=== PATIENT | male | born 2000 | race Caucasian/White ===

== ENCOUNTER 2022-01-28 10:50 | Emergency (ER) | payer BC, SELFPAY ==
[2022-01-28] VITALS (16 sets, daily range): BP systolic 112–131; BP diastolic 63–89; PULSE 40–54; RESP 13–21; TEMP 36.7; O2SAT 100
--- NOTE | ~2022-01-28 | XR_ITS ---
EXAMINATION: XR chest 2V 01/28/2022 11:36 INDICATION: Bradycardia. Dizziness. PROCEDURE: 2 view chest COMPARISON: No prior studies for comparison. FINDINGS: The lungs are clear. The cardiomediastinal silhouette is within normal limits. There are no pleural effusions. There is no pneumothorax suspected. IMPRESSION: 1: NO ACUTE CARDIOPULMONARY DISEASE. Reviewed, dictated and finalized at location A. ER MACHINE OPERATOR
--- NOTE | 2022-01-28 11:00 | ECG_ITS ---
Measurements Intervals [place] Rate: 44 P: -22 AL: 144 QRS: 81 QRSD: 112 T: 67 QT: 440 QTc: 378 Interpretive Statements SINUS BRADYCARDIA WITH SINUS ARRHYTHMIA INTRAVENTRICULAR CONDUCTION DELAY NO PREVIOUS ECG AVAILABLE FOR COMPARISON Electronically Signed On 01-28-2022 12:29:18 AIRPORT OPERATIONS OFFICER by Yousuf Rendon M.D.
--- NOTE | 2022-01-28 11:00 | ED.SYNCOPE ---
HPI - Syncope General Chief Complaint: Syncope Stated Complaint: syncope, low HR Time Seen by Provider: 01/28/22 10:59 Source: patient Mode of arrival: EMS Limitations: no limitations History of Present Illness HPI narrative: Patient is a previously healthy 21-year-old male presenting for evaluation following a syncopal event. Patient reportedly was getting ready to eat a burrito, when he began to feel lightheaded. Patient states he tried to drink some water due to the lightheadedness, and that he lost consciousness. This was witnessed by a friend who was sitting next to him, who states that the patient was unresponsive for 10 seconds, and when he was able to lay the patient on the floor, he regained consciousness. No urinary incontinence. No muscle jerking witnessed. No tongue laceration. Patient awakened, he was not confused. Patient states that he has a history of one-time seizure approximately a year ago for which he was evaluated, not placed on any medication. He has no history of low heart rate. He denies any history of endurance training, significant physical activity. Denies any heart history. Denies recent illness or history of recent Covid infection. He denies fever, chills, nausea or vomiting. He denies any drug use. He denies any lightheadedness currently, dizziness, headache, vision changes, shortness of breath. Per EMS report, when they arrived the patient's blood pressure was low, 70/40, he was noted to be bradycardic in the 40s at times rate in the 30s. Patient's other vital signs were stable, he was transported in stable condition, he did receive a small amount of IV fluids in route. Related Data Allergies Allergy/AdvReac Type Severity Reaction Status Date / Time No Known Allergies Allergy Verified 01/28/22 11:33 Review of Systems Review of Systems: CONSTITUTIONAL: Denies fever, chills, or sweats. EYES: Denies visual changes, redness, or discharge. ENT: Denies rhinorrhea, congestion, sore throat, or otalgia. CARDIOVASCULAR: Denies chest pain, palpitations, or edema. RESPIRATORY: Denies cough or dyspnea. GASTROINTESTINAL: Denies abdominal pain, nausea, vomiting, or diarrhea. GENITOURINARY: Denies dysuria or hematuria. SKIN: Denies rash or itching. MUSCULOSKELETAL: Denies back pain, joint pain, or myalgia. NEUROLOGIC: Denies headache, numbness, or weakness. Denies current lightheadedness or dizziness. [facility] Social History Social History (Updated 01/28/22 @ 11:23 by Lily Bass MD) Smoking status: Current every day smoker Tobacco type: e-cigarettes/vaping Alcohol intake: never Substance use: current Substance use type: marijuana Gender identity (if verbalized by the patient): Male Exam Narrative: GENERAL: Awake, alert, conversant HEAD: Normocephalic, atraumatic. EYES: PERRLA and EOMI. ENT: Nares clear, no rhinorrhea or epistaxis. Mucous membranes moist. NECK: Supple. CHEST: No respiratory distress, breathing even and non labored HEART: Bradycardic rate ABDOMEN:Non distended, non tender EXTREMITIES: Normal range of motion. No edema. SKIN: Pale, warm, dry, no rash. NEURO:No focal deficits. Alert and oriented x3 Course Vital Signs Vital signs: Vital Signs Temperature 36.7 C 01/28/22 10:55 Pulse Rate 40 L 01/28/22 10:55 Respiratory Rate 14 01/28/22 10:55 Blood Pressure 112/63 01/28/22 10:55 Pulse Oximetry 100 01/28/22 10:55 Temperature 36.7 C 01/28/22 10:55 Pulse Rate 42 L 01/28/22 12:05 Respiratory Rate 18 01/28/22 12:05 Blood Pressure 121/78 01/28/22 11:46 Pulse Oximetry 100 01/28/22 11:37 MDM - Syncope MDM Narrative Medical decision making narrative: Patient presented to our facility via EMS for evaluation of syncopal episode, collapse, found to be significantly hypotensive and bradycardic. At the time of assessment, bradycardia persists. Patient is otherwise stable appearing. At time his heart rate is in the 30s, consistently 39
[2022-01-28] MEDS: SODIUM CHLORIDE 0.9% IV 1,000 ML 999 ML IV CONT (11:50)
[2022-01-28 11:54] LABS: Basophils Percent Auto 0.4 % (0.2-1.2); Eosinophils Percent Auto 0.4 % (0-4.4); Hematocrit 35.1 % (42.0-52.0); Hemoglobin 11.6 g/dL (14.0-18.0); Immature Granulocyte Absolute 0.03 K/mm3 (0.00-0.031); Immature Granulocyte Percent A 0.5 % (0-0.5); Lymphocytes Absolute Auto 1.52 K/mm3 (0.9-3.2); Lymphocytes Percent Auto 27.3 % (18.3-44.2); Mean Corpuscular Hemoglobin 29.1 pg (26-34); Monocytes Absolute Auto 0.6 K/mm3 (0.1-0.6); Monocytes Percent Auto 10.1 % (2.6-8.5); Neutrophils Absolute Auto 3.4 K/mm3 (1.3-6.7); Neutrophils Percent Auto 61.3 % (45.5-73.1); Platelet Count Result 247 k/mm3 (150-375); Red Blood Count 3.99 M/mm3 (4.6-6.20); Red Cell Distribution Width 12.6 % (11.5-14.5); White Blood Count 5.6 K/mm3 (4.5-10.0)
[2022-01-28 12:03] LABS: Alanine Aminotransferase 16 U/L (4-50); Albumin Level 4.1 g/dL (3.5-5.1); Alkaline Phosphatase 71 U/L (38-126); Anion Gap 9 mmol/L (8-16); Aspartate Amino Transferase 22 U/L (17-59); Bilirubin,Total 0.4 mg/dL (0.2-1.3); Blood Urea Nitrogen 17 mg/dL (9-20); Calcium 8.6 mg/dL (8.4-10.2); Carbon Dioxide 24 mmol/L (22-30); Chloride 107 mmol/L (98-107); Estimated Glomerular Filt Rate > 60; Glucose 106 mg/dL (65-110); Potassium 4.7 mmol/L (3.4-5.0); Sodium 140 mmol/L (137-145)
[2022-01-28 12:06] LABS: D Dimer 0.28 ug/mL (<0.48)
[2022-01-28 12:15] LABS: NT Pro B Type Natriuretic Pept 91 pg/mL (5-100); Troponin I < 0.012 ng/mL (0.000-0.034)
[2022-01-28 12:42] LABS: Thyroid Stimulating Hormone 0.758 uIU/mL (0.465-4.680)
[2022-01-28 13:55] LABS: Add Urine Microscopic? YES; Appearance Urine Clear (Clear); Bilirubin Urine Negative (Negative); Blood Urine Negative (Negative); Color Urine Yellow (Yellow); Glucose Urine UA Negative (Negative); Ketones Urine Negative (Negative); Leukocyte Esterase Ur Negative LEU/UL (Negative); Nitrate Urine Negative (Negative); Protein Urine Negative (Negative); RBC Urine 0-2 /hpf (0-2); Specific Grav Ur 1.021 (1.001-1.035)
[2022-01-28 14:08] LABS: Amphetamine Screen Urine Negative (Negative); Barbiturate Screen Urine Negative (Negative); Benzodiazepines Screen Urine Negative (Negative); Cannabinoid Screen Urine Positive (Negative); Cocaine Screen Urine Negative (Negative); Methadone Screen Urine Negative (Negative); Opiate Screen Urine Positive (Negative); Phencyclidine Screen Urine Negative (Negative)
--- NOTE | 2022-01-28 14:13 | PM.IMHP ---
H&P: HPI History of Present Illness Date/Time: Patient was placed observation status for expected length of stay less than 23 hours for management, will plan to re-evaluate tomorrow for improvement. 01/28/22 14:13 Chief Complaint: Syncopal episode Narrative: Mr. Sanchez is a 21-year-old gentleman who presented emergency room after having a syncopal episode. 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 This was witnessed by his friend and his friend stated that he had lost consciousness for approximately 10 seconds. Patient denies any loss of bowel or bladder. Patient's friend denied any jerking movements. Patient denied any chest discomfort or shortness of breath prior to the event. Patient states he has never had anything like this occurred previously. Patient denies any past medical pre and states he takes no medications at home. Patient states he does vape and smoke marijuana on occasional basis. Patient denies any abdominal pain, nausea, vomiting, constipation, or diarrhea. Review of Systems Review of Systems: A 12 point review of systems was completed patient all pertinent positive and negative per HPI the remainder are unremarkable. [facility] Social History Social History (Updated 01/28/22 @ 11:23 by Lily Bass MD) Smoking status: Current every day smoker Tobacco type: e-cigarettes/vaping Alcohol intake: never Substance use: current Substance use type: marijuana Gender identity (if verbalized by the patient): Male Meds Home Medications and Allergies Allergies Allergy/AdvReac Type Severity Reaction Status Date / Time No Known Allergies Allergy Verified 01/28/22 11:33 Vital Signs Vital Signs - 24 hr 01/28/22 10:55 01/28/22 11:37 01/28/22 11:46 Temperature 36.7 C Pulse Rate 40 L 44 L 53 L Respiratory Rate 14 14 14 Blood Pressure 112/63 112/67 121/78 Pulse Oximetry 100 100 01/28/22 12:05 Temperature Pulse Rate 42 L Respiratory Rate 18 Blood Pressure Pulse Oximetry Exam Narrative: Constitutional: Patient is a thin 21-year-old gentleman who is in no acute distress. Patient is alert oriented x3 HEENT: Moist mucous membranes. No scleral icterus. No lymphadenopathy. Neck: No carotid bruits noted no JVD noted Lungs: Lung sounds are clear to auscultation bilaterally. No accessory muscle use. No rhonchi, rales, or wheezes noted. Cardiovascular: Apical pulse is regular rate and rhythm. S1-S2 noted, no S3 or S4 noted. No gallops, murmurs, or rubs noted. Abdomen: Soft, round, and nontender. No palpable masses. Extremities: No edema. Nontender. Skin: No rashes or lesions. Warm and dry. Skin is intact. Neurological: No focal neurological deficits. Cranial nerves II-XII grossly intact. Psychiatric: Cooperative, appropriate mood, and affect H&P: Results Labs Labs: Short CBC 01/28/22 Range/Units 11:48 WBC 5.6 (4.5-10.0) K/mm3 Hgb 11.6 L (14.0-18.0) g/dL Hct 35.1 L (42.0-52.0) % Plt Count 247 (150-375) k/mm3 BMP 01/28/22 11:48 Sodium 140 Potassium 4.7 Chloride 107 Carbon Dioxide 24 BUN 17 Creatinine 0.70 Glucose 106 Calcium 8.6 Cardiac Enzymes 01/28/22 Range/Units 11:48 Troponin I < 0.012 (0.000-0.034) ng/mL Liver Function 01/28/22 Range/Units 11:48 Total Bilirubin 0.4 (0.2-1.3) mg/dL AST 22 (17-59) U/L ALT 16 (4-50) U/L Alkaline Phosphatase 71 (38-126) U/L Albumin 4.1 (3.5-5.1) g/dL Urine 01/28/22 Range/Units 13:33 Urine Color Yellow (Yellow) Urine Appearance Clear (Clear) Urine pH 6.0 (5.0-9.0) Ur Specific [place] 1.021 (1.001-1.035) Urine Protein Negative (Negative) mg/dL Urine Glucose (UA) Negative (Negative) mg/dL Assessment and Plan Assessment and plan (1) Syncope and collapse:
--- NOTE | 2022-01-28 15:33 | PC.NURSE ---
pt had room for admission in IMU. IMU stated that room was not ready. Went back to update pt and pt was no longer in the room and left without staff notice. IV on floor at bedside. Attempted to call patient with no answer. Charge nurse and MD aware.
== END 2022-01-28 15:37 | disposition left against medical advice (07) ==
LOC: ANHED 14:03 → ANHIMU 15:36
PROVIDERS: Emergency Provider Emergency Medicine
DX: R55 Syncope and collapse (principal); R00.1 Bradycardia, unspecified; F17.290 Nicotine dependence, other tobacco product, uncomplicated; I45.9 Conduction disorder, unspecified
CPT/HCPCS: 36415; 71046; 80053; 80307; 81001; 83880; 84443; 84484; 85025; 85380; 93005; 96360; 96361; 99284; J7030

== ENCOUNTER 2022-10-02 20:07 | Emergency (ER) | payer BC, SELFPAY ==
[2022-10-02 20:10] VITALS: BP 140/83; PULSE 118; RESP 16; O2SAT 97
--- NOTE | 2022-10-02 20:28 | ED.GENADULT ---
HPI - General Adult General Chief complaint: Wound/Laceration Stated complaint: laceration to left inner arm Time Seen by Provider: 10/02/22 20:19 History of Present Illness HPI narrative: 22-year-old male presenting to the emergency department for evaluation of a laceration to his left forearm. Patient states he was intoxicated and fell while walking down the stairs. Patient states that laceration to his arm happened approximately 1 hour prior to arrival. Patient is unsure of his tetanus status. Patient denies any associated numbness or weakness. Patient denies striking his head denies loss consciousness. Patient denies any significant past medical history. Related Data Allergies Allergy/AdvReac Type Severity Reaction Status Date / Time No Known Allergies Allergy Verified 10/02/22 20:19 Review of Systems Review of Systems: CONSTITUTIONAL: Denies fever, chills, or sweats. EYES: Denies visual changes, redness, or discharge. ENT: Denies rhinorrhea, congestion, sore throat, or otalgia. CARDIOVASCULAR: Denies chest pain, palpitations, or edema. RESPIRATORY: Denies cough or dyspnea. GASTROINTESTINAL: Denies abdominal pain, nausea, vomiting, or diarrhea. GENITOURINARY: Denies dysuria or hematuria. SKIN: See HPI MUSCULOSKELETAL: Denies back pain, joint pain, or myalgia. NEUROLOGIC: Denies headache, numbness, or weakness. [facility] Social History Social History (Updated 01/28/22 @ 11:23 by Lily Bass MD) Smoking status: Current every day smoker Tobacco type: e-cigarettes/vaping Alcohol intake: never Substance use: current Substance use type: marijuana Gender identity (if verbalized by the patient): Male Exam Narrative: APPEARANCE: Well appearing, no pain, no distress, well-nourished. HEAD: normocephalic, atraumatic. EYES: PERRLA/EOMI, conjunctivae clear. NOSE: Normal no drainage NECK: Supple. No adenopathy, no masses. RESPIRATORY: Airway patent, respirations nonlabored. Clear to auscultation bilaterally, no rales, rhonchi, wheezing. CARDIOVASCULAR: Regular rate and rhythm without murmurs rubs or gallops. ABDOMINAL: Soft, nontender, nondistended, normal bowel sounds MUSCULOSKELETAL: Moves all extremities. Strength/ROM intact, No edema, No calf tenderness. No associated numbness or weakness of the left hand NEURO: Alert. Cranial nerves II through XII intact. Grossly intact SKIN: Laceration to left forearm through adipose tissue PSYCHIATRIC: Normal affect/mood. Course Course Emergency Course: Laceration was. As described. Patient and family were updated on the care and follow-up with the patient's primary care physician. All question concerns were addressed. Patient's tetanus was updated Vital Signs Vital signs: Vital Signs Pulse Rate 118 H 10/02/22 20:10 Respiratory Rate 16 10/02/22 20:10 Blood Pressure 140/83 10/02/22 20:10 Pulse Oximetry 97 10/02/22 20:10 Pulse Rate 118 H 10/02/22 20:10 Respiratory Rate 16 10/02/22 20:10 Blood Pressure 140/83 10/02/22 20:10 Pulse Oximetry 97 10/02/22 20:10 Procedures Laceration Laceration 1: Time: 20:53 Site: upper extremity Side (If applicable): left Size (cm): 9 Description: linear Depth: simple, single layer Local Anesthetic: lidocaine 1% Amount of anesthesia used (mL): 4 Pre-repair: wound explored, irrigated and irrigated extensively ====== Skin Level ====== Size (cm): 3-0 Number of sutures: 10 Technique: simple, interrupted ====== Subcutaneous Layer ====== ====== Muscle Layer ====== ====== Tendon Layer ====== Medical Decision Making Vital Signs Vital Signs: Vital Signs Pulse Rate 118 H 10/02/22 20:10 Respiratory Rate 16 10/02/22 20:10 Blood Pressure 140/83 10/02/22 20:10 Pulse Oximetry 97 10/02/22 20:10 Pulse Rate 118 H 10/02/22 20:10 Respiratory Rate 16 10/02/22 20:10 Blood Pressure 140
[2022-10-02] MEDS: LIDOCAINE HCL 1% PF 30 ML VIAL 10 ML INFILTRATE (20:44)
[2022-10-02] MEDS: TETANUS,DIPHTHERIA,AC PERTUSSIS ADULT (0.5 ML) BOOSTRIX IM (20:55)
== END 2022-10-02 21:15 | disposition home or self-care (01) ==
PROVIDERS: Emergency Provider Emergency Medicine
DX: S51.812A Laceration without foreign body of left forearm, initial encounter (principal); F17.290 Nicotine dependence, other tobacco product, uncomplicated; Z23 Encounter for immunization; W10.9XXA Fall (on) (from) unspecified stairs and steps, initial encounter
CPT/HCPCS: 12004; 90471; 90715; 99282

== ENCOUNTER 2022-10-28 16:26 | Emergency (ER) | payer BC, SELFPAY ==
[2022-10-28 16:42] VITALS: BP 118/75; PULSE 87; RESP 18; TEMP 37.2; O2SAT 100
--- NOTE | 2022-10-28 17:20 | ED.GENADULT ---
HPI - General Adult General Chief complaint: Wound/Laceration Stated complaint: needs stiches removed Time Seen by Provider: 10/28/22 17:20 History of Present Illness HPI narrative: 22-year-old male presents the emergency room requesting to have his sutures removed. Patient states that he had 12 sutures placed to his left forearm 3 weeks ago. He denies drainage, pain, swelling or fever. Related Data Allergies Allergy/AdvReac Type Severity Reaction Status Date / Time No Known Allergies Allergy Verified 10/02/22 20:19 Review of Systems Review of Systems: CONSTITUTIONAL: Denies fever, chills, or sweats. EYES: Denies visual changes, redness, or discharge. ENT: Denies rhinorrhea, congestion, sore throat, or otalgia. CARDIOVASCULAR: Denies chest pain, palpitations, or edema. RESPIRATORY: Denies cough or dyspnea. GASTROINTESTINAL: Denies abdominal pain, nausea, vomiting, or diarrhea. GENITOURINARY: Denies dysuria or hematuria. SKIN: Denies rash or itching. MUSCULOSKELETAL: Denies back pain, joint pain, or myalgia. NEUROLOGIC: Denies headache, numbness, dizziness, or weakness. PSYCHIATRIC: Denies anxiety or depression. [facility] [place] Social History Social History Smoking status: Current every day smoker Tobacco type: e-cigarettes/vaping Alcohol intake: never Substance use: current Substance use type: marijuana Gender identity (if verbalized by the patient): Male Exam Narrative: GENERAL: Well-appearing, well-nourished, no physical limitations, and in no acute distress. HEAD: Normocephalic, atraumatic. EYES: Conjunctivae normal, PERRLA and EOMI. ENT: External nose normal, Nares clear, no rhinorrhea or epistaxis. Mucous membranes moist. Oropharynx without tonsillar hypertrophy exudate or other lesions. External ears normal, bilateral TMs normal bilaterally NECK: Supple. No meningeal signs. No adenopathy or masses. No carotid bruits or JVD CHEST: Clear to auscultation. No respiratory distress. No wheezes rales or rhonchi. No tenderness. HEART: Regular rate and rhythm. No murmur heard. Normal peripheral pulses. ABDOMEN: Soft, nontender, nondistended, normal active bowel sounds. : Normal external male/female exam. BACK: No CVA tenderness; No cervical/thoracic/lumbar tenderness, step-offs, bony abnormality; FROM EXTREMITIES: Normal range of motion. No edema. No clubbing or cyanosis SKIN: Left forearm: Linear laceration is well approximated to the anterior side of the left forearm with 11 intact sutures. No surrounding erythema, tenderness, warmth or purulent drainage. NEURO: No focal deficits. Alert and oriented x3. MAEW. CN's II-XI intact bilaterally, normal gait PSYCH: Cooperative. Normal mood and affect. Course Vital Signs Vital signs: Vital Signs Temperature 37.2 C 10/28/22 16:42 Pulse Rate 87 10/28/22 16:42 Respiratory Rate 18 10/28/22 16:42 Blood Pressure 118/75 10/28/22 16:42 Pulse Oximetry 100 10/28/22 16:42 Temperature 37.2 C 10/28/22 16:42 Pulse Rate 87 10/28/22 16:42 Respiratory Rate 18 10/28/22 16:42 Blood Pressure 118/75 10/28/22 16:42 Pulse Oximetry 100 10/28/22 16:42 Procedures Other Procedure Procedure 1: Other Procedure: suture removal: 11 intact sutures removed. No signs of dehiscence, swelling, drainage. Medical Decision Making Vital Signs Vital Signs: Vital Signs Temperature 37.2 C 10/28/22 16:42 Pulse Rate 87 10/28/22 16:42 Respiratory Rate 18 10/28/22 16:42 Blood Pressure 118/75 10/28/22 16:42 Pulse Oximetry 100 10/28/22 16:42 Temperature 37.2 C 10/28/22 16:42 Pulse Rate 87 10/28/22 16:42 Respiratory Rate 18 10/28/22 16:42 Blood Pressure 118/75 10/28/22 16:42 Pulse Oximetry 100 10/28/22 16:42 Discharge Plan Discharge Clinical Impression: Visit for suture removal Patient Disposition: Home, Self-Care Condition: Stable Instruct
== END 2022-10-28 18:00 | disposition home or self-care (01) ==
LOC: ANHED 17:26
PROVIDERS: Emergency Provider Nurse Practitioner Family
DX: S51.812D Laceration without foreign body of left forearm, subsequent encounter (principal); X58.XXXD Exposure to other specified factors, subsequent encounter; F17.290 Nicotine dependence, other tobacco product, uncomplicated
CPT/HCPCS: 99281